=== PATIENT | male | born 1975 | race Caucasian/White ===

== ENCOUNTER 2018-04-07 19:59 | Emergency (ER) | payer OTHER ==
[~2018-04-07] VITALS: Ht 167.6 cm; Wt 100.7 kg
[~2018-04-07 19:59] MED LIST: COZ25
[2018-04-07 20:10] VITALS: Ht 167.6 cm; Wt 100.7 kg
[2018-04-07 20:57] LABS: BASOPHIL % 0.1 % (0-2); PLATELET COUNT 221 x10^3mcL (130-400); RED CELL DISTRIBUTION WIDTH 13.9 % (11.5-14.5)
[2018-04-07 21:04] LABS: ALBUMIN 4.1 g/dL (3.4-5.0); BILIRUBIN TOTAL 0.57 mg/dL (0.20-1.00); CALCIUM 8.8 mg/dL (8.5-10.1); CARBON DIOXIDE 27.5 mmol/L (21-32); POTASSIUM SERUM 4.4 mmol/L (3.5-5.1)
[2018-04-08 00:52] VITALS: BP 161/93
== END 2018-04-08 00:52 | disposition short-term general hospital (02) ==
LOC: ED 19:59
PROVIDERS: Emergency Medicine
DX: K66.1 Hemoperitoneum (principal); N28.89 Other specified disorders of kidney and ureter; I12.0 Hypertensive chronic kidney disease with stage 5 chronic kidney disease or end stage renal disease; N18.6 End stage renal disease; Z99.2 Dependence on renal dialysis; Z98.890 Other specified postprocedural states; S37.092A Other injury of left kidney, initial encounter
CPT/HCPCS: J0360; J1170; J2270; J2405; J3490